=== PATIENT | male | born 1985 | race Two or more races ===

== ENCOUNTER 2022-07-05 10:58 | Emergency (ER) | payer BC ==
[~2022-07-05] VITALS: Ht 185.4 cm; Wt 75.7 kg
--- NOTE | 2022-07-05 10:58 | NUR ---
TO ER BED 1. BIB , WAS AT HIS SURGEONS OFFICE AND GAVE HIM AND INJECTION WITH TORADOL ON HIS VASTUS LATERALIS, HAS ALLERGY TO NSAIDS. PT STATED THAT THE SITE OF INJECTION BECAME INFLAMMED AFTER THE INJECTION AND SINCE HAS DEVELOPED A MIGUEL ON HIS UPPER BODY. PT SATTING AT 97%. DID NOT TAKE ANY MEDICATION AFTER INJECTION. AWAITING MD WHITLEY.
--- NOTE | 2022-07-05 11:19 | NUR ---
DR LEYVA SPEAKING W/ PT
[2022-07-05] MEDS ORDERED: methylPREDNISolone SOD SUCC 125 MG/2ML VIAL ONE ×2 (11:27→12:54)
[2022-07-05] MEDS ORDERED: diphenhydrAMINE HCL 50 MG/ML VIAL ONE (11:27)
[2022-07-05] MEDS ORDERED: FAMOTIDINE (20 MG) 20 MG TABLET ONE (11:27)
[2022-07-05] MEDS ORDERED: methylPREDNISolone SOD SUCC 125 MG/2ML VIAL IM ONE (11:30)
[2022-07-05] MEDS ORDERED: diphenhydrAMINE HCL 50 MG/ML VIAL IM ONE (11:30)
[2022-07-05] MEDS ORDERED: FAMOTIDINE (20 MG) 20 MG TABLET PO ONE (11:30)
[2022-07-05] MEDS ORDERED: PRED50TA PO (12:42)
[2022-07-05] MEDS ORDERED: EPIN0.3P3 IM (12:42)
[2022-07-05] MEDS ORDERED: Magnesium 1GM/D5W 100ML PREMIX 100 ML IV ONE (12:54)
[2022-07-05] MEDS ORDERED: methylPREDNISolone SOD SUCC 125 MG/2ML VIAL IV ONE (13:00)
[2022-07-05] MEDS ORDERED: IV NS 0.9% 1,000 ML BAG IV ONE (13:00)
[2022-07-05] MEDS ORDERED: Magnesium 1GM/D5W 100ML PREMIX 200 ML IV ONE (13:00)
--- NOTE | 2022-07-05 13:37 | NUR ---
Patient discharged to home in stable condition. Written and verbal after care instructions given. Patient verbalizes understanding of instruction.
--- NOTE | 2022-07-05 13:37 | NUR ---
IV removed. Catheter intact and site benign. Pressure and 4x4 applied to site. No bleeding noted.
[2022-07-05 13:38] VITALS: BP 130/75
== END 2022-07-05 13:39 | disposition home or self-care (01) ==
LOC: ER 11:04
DX: L50.0 Allergic urticaria (principal); Z90.89 Acquired absence of other organs; Z88.0 Allergy status to penicillin; Z88.8 Allergy status to other drugs, medicaments and biological substances; Z79.899 Other long term (current) drug therapy
CPT/HCPCS: 99284; 96365; 96375; 96372 ×2; J1200; J2930 ×2; J3475